=== PATIENT | male | born 1995 | race Caucasian/White ===

== ENCOUNTER → 2018-06-20 15:27 | Outpatient (CLI) | payer OTHER, SELFPAY ==
--- NOTE | 2018-06-20 15:31 | DI.MRI.S_ITS ---
PROCEDURE: MR ANKLE RT WO CON INDICATIONS: RIGHT FOOT INJURY TECHNIQUE: Noncontrast sagittal T1 spin echo and T2 fast spin echo with fat saturation, axial proton density fast spin echo and T2 fast spin echo with fat saturation, coronal T1 spin echo and T2 fast spin echo with fat saturation through the ankle/hindfoot. COMPARISON: None. FINDINGS: Image quality: Diagnostic. Bones and joints: There is no acute fracture, dislocation, suspicious osseous lesion, or evidence of avascular necrosis involving the osseous structures of the midfoot or hindfoot. Ankle mortise is well-maintained. There are no osteochondral defects of the tibial plafond for the talar dome. Mild degenerative changes of the dorsal aspect of the talonavicular joint is identified. No definite additional areas of significant degenerative change are present involving the midfoot or hindfoot joints. A small Achilles spur may be present involving the calcaneus. No significant joint effusions are present. Medial structures: The deltoid ligament and the spring ligament are intact. Slight increased signal involving the deltoid ligament is likely artifactual. Mild increased signal and slight thickening involving the distal margin of the imaged tibialis posterior tendon is present along the posterior margin of the medial malleolus and near the level of the navicular. A small amount of fluid is contained within its corresponding tendon sheath. There is no significant tearing of the tendon. The flexor hallucis longus and flexor digitorum longus tendons are intact and otherwise unremarkable. The posterior tibial nerve to the region of the tarsal tunnel appears to be within normal limits and is otherwise unremarkable. Lateral structures: The anterior and posterior distal tibiofibular ligaments are intact. The anterior and posterior talofibular ligaments are also intact. The calcaneofibular ligament is intact. There is slight increased signal involving the posterior talofibular ligament. The peroneus brevis and peroneus longus tendons are noted to be intact without significant tearing evident. There appears to be an accessory peroneus quartus tendon, which is intact and otherwise unremarkable. There is normal fatty signal within the sinus tarsi. Anterior structures: The tibialis anterior, extensor hallucis longus, and extensor digitorum longus tendons appear intact. Posterior and plantar structures: Achilles tendon is intact. Medial and lateral bands of the plantar fascia are of normal thickness. IMPRESSION: 1. Mild tibialis posterior tendinopathy with corresponding tenosynovitis. No significant tearing. 2. Early degenerative changes of the dorsal talonavicular joint. 3. Questionable sprains of the deltoid ligament and the posterior talofibular ligament. No tearing of the medial or lateral ankle ligaments is evident. Dictated by: Cruzito Norman M.D. on 06/20/2018 at 16:27 Approved by: Cruzito Norman M.D. on 06/20/2018 at 16:31
--- NOTE | 2018-06-20 15:31 | DI.MRI.S_ITS ---
PROCEDURE: MR FOOT RT WO CON INDICATIONS: RIGHT FOOT INJURY TECHNIQUE: Noncontrast sagittal T1 spin echo and T2 fast spin echo with fat saturation, long-axis T1 spin echo and T2 fast spin echo with fat saturation, short-axis T1 spin echo and T2 fast spin echo with fat saturation through the forefoot. COMPARISON: None. FINDINGS: Image quality: Diagnostic. Bones and joints: No displaced fractures or dislocations are identified. No suspicious osseous lesions are present. There is a vague marrow edema evident involving the heads of the 3rd, 4th, and 5th metatarsals. Bony alignment is within normal limits. The sesamoids of the great toe are present. No significant degenerative changes of the right forefoot and midfoot are evident. Soft tissues: There is mild soft tissue edema identified about the 3rd through 5th metatarsophalangeal joints. There may be associated small joint effusions. The flexor and extensor tendons of the midfoot and forefoot appear to be within normal limits. The Lisfranc ligament may be thinned, but is not well seen. No soft tissue masses or loculated fluid collections are evident. The intrinsic muscles of the forefoot are within normal limits without significant atrophy. IMPRESSION: 1. Nonspecific mild marrow edema involving the 3rd through 5th metatarsal heads is most likely related to bone contusions. Subtle subacute fractures are difficult to exclude and correlation with conventional radiographic imaging is recommended. 2. Soft tissue swelling and small joint effusions about the 3rd through 5th metatarsophalangeal joints. Dictated by: Cruzito Norman M.D. on 06/20/2018 at 16:22 Approved by: Cruzito Norman M.D. on 06/20/2018 at 16:27
== END ==
PROVIDERS: Visit Provider Podiatrist
DX: S99.921A Unspecified injury of right foot, initial encounter (principal); M79.89 Other specified soft tissue disorders; M25.474 Effusion, right foot
CPT/HCPCS: 73718; 73721